=== PATIENT | male | born 1995 | race African-American/Black ===

== ENCOUNTER → 2016-09-12 | Outpatient (REF) | payer OTHER ==
[~2016-09-12] MED LIST: LEXA1TAB2 PO
== END ==
LOC: M LAB REF 16:48
PROVIDERS: ATTEND Physician Assistant
DX: J11.1 Influenza due to unidentified influenza virus with other respiratory manifestations (principal)

== ENCOUNTER → 2016-12-29 | Outpatient (REF) | payer OTHER | LOC: M LAB REF 20:29 | PROVIDERS: ATTEND Physician Assistant Medical | DX: R36.9 Urethral discharge, unspecified (principal) ==

== ENCOUNTER → 2017-01-15 | Outpatient (REF) | payer OTHER | LOC: M LAB REF 10:23 | PROVIDERS: ATTEND Physician Assistant | DX: Z11.3 Encounter for screening for infections with a predominantly sexual mode of transmission (principal) ==

== ENCOUNTER 2018-06-26 17:07 | Emergency (ER) | payer OTHER ==
[~2018-06-26] VITALS: Ht 177.8 cm; Wt 77.3 kg
[2018-06-26] MEDS ORDERED: ADDE20CA3 PO (17:23)
--- NOTE | 2018-06-26 18:15 | REP ---
Clinical: Acute chest pain . Comparison: None . Technique: PA and lateral. Findings: The mediastinum and cardiac silhouette are normal. The lung rodriguez are clear and without acute consolidation, effusion, or pneumothorax. The skeletal structures are intact and normal. Impression: 1. No acute cardiopulmonary process. Electronically Signed by Sharan Durán MD 06/26/2018 06:06 P
[2018-06-26] MEDS ORDERED: IBUP80TA PO (18:47)
[2018-06-26 18:55] VITALS: BP 135/72
[2018-06-26] MEDS ORDERED: IBUPROFEN 800 MG TAB PO ONE (19:00)
== END 2018-06-26 18:56 | disposition home or self-care (01) ==
LOC: M ED 17:07
DX: S20.20XA Contusion of thorax, unspecified, initial encounter (principal); W50.1XXA Accidental kick by another person, initial encounter; Y92.9 Unspecified place or not applicable

== ENCOUNTER 2022-10-17 11:55 | Emergency (ER) | payer OTHER, MEDICAID ==
[~2022-10-17] VITALS: Ht 177.8 cm; Wt 76.1 kg
[~2022-10-17 11:55] MED LIST changes: +ADDE20CA3 PO; +IBUP80TA PO
[2022-10-17 11:58] VITALS: BP 127/79
[2022-10-17] MEDS ORDERED: DEXTROAMP-AMPHETAMIN (12:09)
== END 2022-10-17 15:20 | disposition home or self-care (01) ==
LOC: M ED 11:55
DX: R20.2 Paresthesia of skin (principal); F41.9 Anxiety disorder, unspecified; F90.9 Attention-deficit hyperactivity disorder, unspecified type; Z79.899 Other long term (current) drug therapy